=== PATIENT | male | born 1985 | race Caucasian/White ===

== ENCOUNTER → 2019-09-04 | Outpatient (CLI) | payer OTHER | LOC: MHCPAIN 13:58 | DX: M47.817 Spondylosis without myelopathy or radiculopathy, lumbosacral region (principal); M53.3 Sacrococcygeal disorders, not elsewhere classified | CPT/HCPCS: G0463 ==

== ENCOUNTER → 2019-09-19 | Outpatient (CLI) | payer OTHER | LOC: MHCPAIN 08:32 | DX: M54.5 Low back pain (principal) | CPT/HCPCS: Q9967 ==

== ENCOUNTER → 2019-10-08 | Outpatient (CLI) | payer OTHER | LOC: MHCPAIN 14:13 | DX: M47.817 Spondylosis without myelopathy or radiculopathy, lumbosacral region (principal); M53.3 Sacrococcygeal disorders, not elsewhere classified | CPT/HCPCS: G0463 ==

== ENCOUNTER → 2019-10-14 | Outpatient (CLI) | payer OTHER | LOC: MHCPAIN 09:54 | DX: M54.5 Low back pain (principal) ==

== ENCOUNTER → 2019-11-21 | Outpatient (CLI) | payer OTHER | LOC: MHCPAIN 10:12 | DX: M53.3 Sacrococcygeal disorders, not elsewhere classified (principal); M47.817 Spondylosis without myelopathy or radiculopathy, lumbosacral region | CPT/HCPCS: G0463; J1100; J2250; J3010 ==

== ENCOUNTER → 2019-11-25 | Outpatient (CLI) | payer OTHER | LOC: MHCPAIN 08:38 | DX: M47.27 Other spondylosis with radiculopathy, lumbosacral region (principal) | CPT/HCPCS: J1100; J2250; J3010 ==

== ENCOUNTER → 2020-10-14 | Outpatient (CLI) | payer OTHER | LOC: MHCPAIN 13:39 | DX: M47.817 Spondylosis without myelopathy or radiculopathy, lumbosacral region (principal); M54.5 Low back pain; M53.3 Sacrococcygeal disorders, not elsewhere classified; G89.29 Other chronic pain | CPT/HCPCS: G0463 ==

== ENCOUNTER → 2020-11-16 | Outpatient (CLI) | payer OTHER | LOC: MHCPAIN 12:03 | DX: M47.817 Spondylosis without myelopathy or radiculopathy, lumbosacral region (principal); M54.5 Low back pain | CPT/HCPCS: J1100; J2250; J3010 ==

== ENCOUNTER → 2020-11-19 | Outpatient (CLI) | payer OTHER | LOC: MHCPAIN 11:57 | DX: M47.817 Spondylosis without myelopathy or radiculopathy, lumbosacral region (principal); M54.5 Low back pain | CPT/HCPCS: G0463; J1100; J2250; J3010 ==

== ENCOUNTER → 2021-01-06 | Outpatient (CLI) | payer OTHER | LOC: MHCPAIN 13:53 | DX: M47.817 Spondylosis without myelopathy or radiculopathy, lumbosacral region (principal); M54.5 Low back pain; M53.3 Sacrococcygeal disorders, not elsewhere classified; G89.29 Other chronic pain | CPT/HCPCS: G0463 ==

== ENCOUNTER → 2021-04-27 | Outpatient (CLI) | payer OTHER | LOC: MHCPAIN 13:37 | DX: M47.817 Spondylosis without myelopathy or radiculopathy, lumbosacral region (principal); M54.5 Low back pain; M53.3 Sacrococcygeal disorders, not elsewhere classified | CPT/HCPCS: G0463 ==

== ENCOUNTER → 2021-05-17 | Outpatient (CLI) | payer OTHER | LOC: MHCPAIN 10:26 | DX: M47.817 Spondylosis without myelopathy or radiculopathy, lumbosacral region (principal); M54.5 Low back pain; M53.3 Sacrococcygeal disorders, not elsewhere classified | CPT/HCPCS: J1100; J2250; J3010 ==

== ENCOUNTER → 2021-05-24 | Outpatient (CLI) | payer OTHER | LOC: MHCPAIN 09:44 | DX: M47.817 Spondylosis without myelopathy or radiculopathy, lumbosacral region (principal); M54.5 Low back pain; M53.3 Sacrococcygeal disorders, not elsewhere classified | CPT/HCPCS: J1100; J2250; J3010 ==

== ENCOUNTER → 2021-07-12 | Outpatient (CLI) | payer OTHER | LOC: MHCPAIN 09:44 | DX: M54.50 Low back pain, unspecified (principal); M53.3 Sacrococcygeal disorders, not elsewhere classified | CPT/HCPCS: G0463 ==